=== PATIENT | male | born 1980 | race Caucasian/White ===

== ENCOUNTER → 2020-01-27 | Outpatient (CLI) | payer OTHER ==
[~2020-01-27] MED LIST: ALBUTEROL INH; APIX2.5T PO; ESTR1PAT25 TD; WARF3TAB PO; WARF6TAB PO
== END | disposition home or self-care (01) ==
LOC: STAR 11:03
PROVIDERS: ATTEND Internal Medicine Geriatric Medicine
DX: Z01.818 Encounter for other preprocedural examination (principal); Z11.59 Encounter for screening for other viral diseases; R19.09 Other intra-abdominal and pelvic swelling, mass and lump
CPT/HCPCS: 36415; 87635; 93005

== ENCOUNTER 2020-01-31 09:31 | Day surgery (SDC) | payer OTHER ==
[~2020-01-31] VITALS: Ht 160 cm; Wt 70.2 kg
[2020-01-31 10:06] VITALS: BP 110/70
[2020-01-31] MEDS ORDERED: LACTATED RINGERS 1,000 ML IV SCH (10:09)
[2020-01-31] MEDS ORDERED: CHLORHEXIDINE 15 ML UDC MM ONE (10:30)
[2020-01-31] MEDS ORDERED: MIDAZOLAM 1 MG/ML, 2ML ONE (11:13)
[2020-01-31] MEDS ORDERED: FENTANYL PF 100 MCG/2ML ONE (11:13)
[2020-01-31] MEDS ORDERED: ONDANSETRON 2MG/ML, 2ML IVPush PRN (11:30)
[2020-01-31] MEDS ORDERED: PROMETHAZINE 25 MG/ML, 1ML IVPush PRN (11:30)
[2020-01-31] MEDS ORDERED: hydrALAzine 20 MG/ML, 1ML IV PRN (11:30)
[2020-01-31] MEDS ORDERED: morphine SULFATE 10 MG/ML, 1ML IVPush PRN (11:30)
[2020-01-31] MEDS ORDERED: LABETALOL 5MG/ML, 20ML IV PRN (11:30)
[2020-01-31] MEDS ORDERED: FENTANYL PF 100 MCG/2ML IV PRN (11:30)
[2020-01-31] MEDS ORDERED: OXYcodone 5 MG/5 ML ORAL.SOL UDC PO PRN (11:30)
[2020-01-31] MEDS ORDERED: ACETAMINOPHEN 325 MG TABLET PO PRN (11:30)
[2020-01-31] MEDS ORDERED: MEPERIDINE/PF 25MG/0.5ML IVPush PRN (11:30)
[2020-01-31] MEDS ORDERED: DEXAMETHASONE 4 MG/ML, 1ML ONE ×2 (12:18→12:30)
[2020-01-31] MEDS ORDERED: ROCURONIUM 10MG/ML,5ML ONE (12:36)
[2020-01-31] MEDS ORDERED: PROPOFOL 10 MG/ML, 20ML ONE (12:36)
[2020-01-31] MEDS ORDERED: SUCCINYLCHOLINE 20 MG/ML, 10ML ONE (12:36)
[2020-01-31] MEDS ORDERED: FENTANYL PF 250 MCG/5ML ONE (12:37)
[2020-01-31] MEDS ORDERED: PROMETHAZINE 25 MG/ML, 1ML ONE (14:25)
== END 2020-01-31 16:35 | disposition home or self-care (01) ==
LOC: OUT 09:31 → EDSEX 09:31 → OUT 16:35
PROVIDERS: ATTEND Internal Medicine Geriatric Medicine
DX: K31.7 Polyp of stomach and duodenum (principal); Q85.8 Other phakomatoses, not elsewhere classified; Z88.0 Allergy status to penicillin; Z88.1 Allergy status to other antibiotic agents; Z88.8 Allergy status to other drugs, medicaments and biological substances; Z79.899 Other long term (current) drug therapy; Z79.01 Long term (current) use of anticoagulants; Z72.89 Other problems related to lifestyle; Z87.891 Personal history of nicotine dependence; Z82.49 Family history of ischemic heart disease and other diseases of the circulatory system; Z98.890 Other specified postprocedural states
CPT/HCPCS: 44377; 44799; 88305; A4648; J0330; J1100; J2250; J2550; J2704; J3010